=== PATIENT | female | born 1985 | race Caucasian/White ===

== ENCOUNTER 2022-05-13 10:00 | Outpatient (RCR) | payer OTHER, SELFPAY | END 2022-06-29 09:19 | disposition home or self-care (01) | PROVIDERS: PCP Physician Assistant Medical; Visit Provider Physician Assistant Medical | DX: M25.561 Pain in right knee (principal); Z51.89 Encounter for other specified aftercare | CPT/HCPCS: 97110; 97140; 97162 ==

== ENCOUNTER 2023-12-05 07:33 | Outpatient (CLI) | payer OTHER, SELFPAY ==
--- OUTSIDE RECORDS SUMMARY | 2023-12-20 10:24 | XMS_ITS | Patient Health Record ---
Author Organization [facility] [place] Address [address] [place] [address] Care Team Providers Care Safe Technician Name Role Phone AlpaPaige Primary Care Provider Екатерина Bishop Unavailable [phone] Justyna Schuster Unavailable [phone] Stacy Coe Unavailable [phone] Lorenza Sullivan Unavailable [phone] Susan Paniagua Unavailable [phone] Katerina Doan Unavailable [phone] Alexandra Roca Unavailable [phone] Lulu Forrest Unavailable Patricio Govea Unavailable [phone] Allergies Allergen (clinical drug ingredient) Drug/Non Drug Allergy documented on EMR Reaction Allergy Type Onset Date Status amoxicillin / clavulanate Augmentin hives Drug Allergy Active cefaclor Cefaclor Unknown Drug Allergy Active EPINEPHrine dizziness Drug Allergy Activ e Neoprene Neoprene Unknown Allergy Active Results Component Value Reference Range Notes STREPTOCOCCUS, GROUP B CULTU RE W/ SENSITIVITY (PCN ALLERGY) Reviewed date:05/31/2023 09:04:34 AM Interpretation: Performing Lab:JOE, [facility] [facility] HospitalShahzadFikdIC[address] Carlo Huffman Notes/Report: CULTURE, GROUP B STREP WITH SUSCEPTIBILITY SEE NOTE CULTURE, GROUP B STREP WITH SUSCEPTIBILITY Micro Number: [id number] Test Status: Final Specimen Source: Rectal Specimen Quality: Adequate Result: No group B Streptococcus isolated Note per CDC guidelines optimal recovery is achieved by swabbing both the lower vagina and rectum (through the anal sphincter). CBC (INCLUDES DIFF/PLT) Reviewed date:06/28/2023 10:07:55 AM Interpretation: Performing Lab:JOE [employer] [address], Shahzad IngramZzjnFJ[address] Carlo Huffman Notes/Report: WHITE BLOOD CELL COUNT 8.4 3.8-10.8 Thousand/ uL RED BLOOD CELL COUNT 4.85 3.80-5.10 Million/uL HEMOGLOBIN 12.1 11.7-15.5 g/dL HEMATOCRIT 37.8 35.0-45.0 % MCV 77.9 80.0-100.0 fL MCH 24.9 27.0-33.0 pg MCHC 32.0 32.0-36.0 g/dL RDW 14.5 11.0-15.0 % PLATELET COUNT 350 140-400 Thousand/uL MPV 11.0 7.5-12.5 fL ABSOLUTE NEUTROPHILS 5107 0439-7523 cells/uL ABSOLUTE LYMPHOCYTES 2402 850-3900 cells/uL ABSOLUTE MONOCYTES 479 200-950 cells/uL ABSOLUTE EOSINOPHILS 361 15-500 cells/uL ABSOLUTE BASOPHILS 50 0-200 cells/uL NEUTROPHILS 60.8 LYMPHOCYTES 28.6 MONOCYTES 5.7 EOSINOPHILS 4.3 BASOPHILS 0.6 Urinalysis, Routine - IH Reviewed date:03/29/2023 08:40:44 AM Interpretation: Performing Lab: Notes/Report: Glucose Neg Bilirubin Neg Ketone Neg Specific [place] 1.005 Blood Neg pH 8.0 Protein Neg Urobilinogen 0.2 Nitrite Neg Leukocytes Neg RPR (DX) W/REFL TITER AND CO NFIRMATORY TESTING Reviewed date:03/29/2023 08:40:44 AM Interpretation: Performing Lab:JOE [employer] [address], Shahzad IngramVdqiUT[address] Carlo Huffman Notes/Report: 0; 0; 0 RPR (DX) W/REFL TITER AND CONFIRMATORY TESTING NON-REACTIVE NON-REACTIVE CBC (INCLUDES DIFF/PLT) Reviewed date:03/29/2023 08:40:44 AM Interpretation: Performing Lab:JOE [employer] [address], MDSaveEgysXA[address] Carlo Huffman Notes/Report: 0; 0; 0 WHITE BLOOD CELL COUNT 7.7 3.8-10.8 Thousand/ uL RED BLOOD CELL COUNT 4.53 3.80-5.10 Million/uL HEMOGLOBIN 11.9 11.7-15.5 g/dL HEMATOCRIT 36.3 35.0-45.0 % MCV 80.1 80.0-100.0 fL MCH 26.3 27.0-33.0 pg MCHC 32.8 32.0-36.0 g/dL RDW 16.0 11.0-15.0 % PLATELET COUNT 290 140-400 Thousand/uL MPV 10.0 7.5-12.5 fL ABSOLUTE NEUTROPHILS 5814 0496-9057 cells/uL ABSOLUTE LYMPHOCYTES 8304 400-2339 cells/uL ABSOLUTE MONOCYTES 416 200-950 cells/uL ABSOLUTE EOSINOPHILS 62 15-500 cells/uL ABSOLUTE BASOPHILS 23 0-200 cells/uL NEUTROPHILS 75.5 LYMPHOCYTES 18.0 MONOCYTES 5.4 EOSINOPHILS 0.8 BASOPHILS 0.3 GLUCOSE, GESTATIONAL SCREEN (50G)-135 CUTOFF Reviewed date:03/29/2023 08:40:44 AM Interpretation: Performing Lab:JOE [employer] [facility] [employer], [facility] HospitalBkioYM[address] Carlo Huffman Notes/Report: 0; 0; 0 GLUCOSE, GESTATIONAL SCREEN (50G)-135 CUTOFF 134 <135 mg/dL BD Affirm Reviewed date:03/18/2023 11:30:17 AM Interpretation: Performing Lab: Notes/Report: Trichomoniasis neg Negative - Bacterial Vaginosis pos Negative - Yeast neg Negative - CULTURE, URINE, ROUTINE Reviewed date:03/06/2023 12:14:12 PM Interpretation: Performing Lab:JOE [employer], [facility] HospitalGmrgLH[address] Carlo Huffman Notes/Report: CULTURE, URINE, ROUTINE SEE NOTE CULTURE, URINE, ROUTINE Micro Number: [id number] Test Status: Final Specimen Source: Urine, clean catch Specimen Quality: Adequate Result: No Growth Urinalysis, Routine - Reviewed date:03/03/2023 03:24:25 PM Interpretation: Performing Lab: Notes/Report: Urine Color Yellow Yellow - Faby Appearance Clear Clear - Glucose Neg Bilirubin Neg Ketone Neg Specific [place] 1.010 Blood Neg pH 7.5 Protein Neg Urobilinogen 0.2 mg/dL Nitrite Neg Leukocytes Neg Reason For Referral Reason [facility]- Has appt. set u p Diagnosis 1 History of stillbirt h (Z87.59) Referral Organization [facility] Referring Provider First Name Susan Referring Provider Last Name Arcelia Referring Provider Speciality Obstetrici an and manager of data Referred Provider Specialty Radiology General Notes Mirza Elisa 12/23 01:14:58 PM > spoke with Justine, she said Susan sent a referral to [facility] but she has not received a call from them yet to schedule appt. I did give pt the number to [facility], she can call them to get scheduled too. I will check with Susan to see when the referral was sent, pt states understanding. TAHIRA,RN, msg sent to Susan, I don't see the referral in her chart, thank you TAHIRARN, Susan Paniagua 01/04/2023 04:42:58 PM > Per refer to [facility] level II for history of stillbirth, Adrien Herrera 01/05/2023 09:46:03 AM > Referral sent to [facility]- TrackingJavier Andrea 01/07/2023 12:06:53 PM >Being seen on 01/20Javier Andrea 01/24/2023 08:51:18 AM >Notes from 01/20 in chart- PT also being seen on 02/11 and 03/25, Adrien Herrera 03/31/2023 07:59:00 AM >notes in chart Referral Priority Routine Referral Appointment Date 03/25/2023 Medications Medication SIG (Take, Route, Frequency, Duration) Notes Start Date End Date Status Escitalopram 20 MG 1 tablet Orally Once a day Active metFORMIN HCl ER 750 MG TAKE 2 TABLETS B Y MOUTH W/ EVENING MEAL ONCE A DAY for 90 Active Clindamycin HCl 300 MG 1 capsules Orally every 8 hrs for 10 days 06/27/2023 Active Lovenox 40 MG/0.4ML 0.4 mL Injection Onc e a day for 30 days 10/06/2022 Unknown Vitamin Act radha Wellbutrin XL 300 MG 1 tablet in the mor danii Orally Once a day Active Immunizations Vaccine Route Administration Date Status Comme nts TDAP VACCINE >7 IM IM Intramuscular 10/27/2021 Administere d TDAP VACCINE >7 IM IM Intramuscular 05/06/2023 Administere d Social History Tobacco Use: Social History Observation Description Date Details (start date - stop date) Never Smoker NA - NA Tobacco Use/Smoking Question Answer Notes Are you a nonsmoker Alcohol Screen (Audit-C) Question Answer Notes Did you have a drink containing alcohol in the p ast year? No Points 0 Interpretation Negative Sexual History Question Answer Notes Had sex in the past 12 months (vaginal, oral, or anal)? Yes with Men only Last menstrual period 04/08/19 Problems Problem Type SNOMED Code ICD Code Onset Dates Problem Status W/U Status Risk Notes Problem 41300387 Other chronic pain (G89.29) Active confirmed Problem SI - Stress incontinence (54724896) Stress incontinence (female) (male) (N39.3) Active confirmed Problem Urge incontinence of urine (30794205) Urge incontinence (N39.41) Active confirmed Problem Prolapse of female genital organs (61735986) Other female genital prolapse (N81.89) Active confirmed Problem Second trimester (06175717) Encounter for supervision of other normal , second trimester (Z34.82) Active confirmed Problem 841130872193 Obesity affecting in second trimester (O99.212) Active confirmed Problem Multigravida of advanced maternal age (739093788) Elderly multigravida in third trimester (O09.523) Active confirmed Problem Irregular periods (69320640) Irregular periods/menstrua l cycles (N92.6) Active confirmed Problem 430604184 PCOS (polycystic ovarian syndrome) (E28.2) Active confirmed Problem 849825823 High-tone pelvic floor dysfunction (N94.89) Active confirmed Problem First trimester (27450933) First trimester (Z33.1) Active confirmed Problem Spotting (7127657) Spotting (N92.0) Active confirmed Problem 44919063 Dyspareunia in female (N94.10) Active confirmed Problem Anemia of (22468381) Anemia affecting in third trimester (O99.013) Active confirmed Problem Maternal obesity complicating , childbirth and the puerperium, antepartum (628612941734) Obesity affecting (O99.210) Active confirmed Problem 664829996 Factor 5 Leiden mutation, heterozygous (D68.51) Active confirmed Problem 839264048 Obesity (BMI 30-39.9) (E66.9) Active confirmed Problem 759489419484 Obesity affecting in first trimester (O99.211) Active confirmed Problem 466796585 BMI 40.0-44.9, adult (Z68.41) Active confirmed Problem 363820485680 Obesity affecting in third trimester (O99.213) Active confirmed Problem 740217868 Morbid obesity (E66.01) Active confirmed Problem 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 [address] [place], [place] [address] [facility] [address] [place] [phone] 01/04/2023 Susan Paniagua [facility] [address] [place] [address] 03/03/[address] [facility] [address] [place], [place] [address] [address] [place] [phone] 03/07/[address] [facility] [address] [employer] [address] [place] [phone] 03/22/2023 Paige Yuen [facility] [address] [place] [address] 03/23/2023 Susan Paniagua [facility] [address] [place] [address] 04/26/2023 Susan Paniagua [facility] [address] [place] [address] 05/06/2023 Susan Paniagua [address] [place] [phone] 05/11/[address] [facility] [address] [place] [phone] 06/02/[address] [facility] [address] [place] [address] 06/27/[address] [facility] [address] [place] [phone] 12/29/2022 Susan Paniagua [address] [address] 03/09/2023 Justyna Schuster [address] [address] 05/10/2023 Susan Paniagua [address] [address] 05/14/2023 Susan Paniagua [facility] [address] [place] [address] 06/27/2023 Lulu Chin Postop check Z09 [address] [address] 01/11/2023 Stacy Coe Supervision of high risk in second trimester O09.92 ; History of IUFD Z87.59 ; Obesity affecting in second trimester O99.212 and Factor 5 Leiden mutation, heterozygous D68.[address] [address] 02/25/2023 Susan Paniagua Supervision of high risk in second trimester O09.92 ; History of IUFD Z87.59 ; History of delivery Z98.891 and Recurrent loss in patient in second trimester, antepartum O26.[address] [address] 03/03/2023 Justyna Schuster Pelvic cramping R10. 2 and Supervision of high risk , unspecified, second trimester O09.92 [address] [place] [address] 03/23/2023 Katerina Doan Supervision of high risk , unspecified, second trimester O09.92 and IUGR, O36.[address] [address] 04/08/2023 Susan Paniagua Supervision of other high risk pregnancies, third trimester O09.893 ; History of IUFD Z87.59 and History of delivery, currently O34.[address] [address] 04/22/2023 Susan Paniagua Supervision of other high risk pregnancies, third trimester O09.893 ; History of IUFD Z87.59 ; Factor V deficiency D68.2 and Multigravida of advanced maternal age in third trimester O09.[address] [address] 05/06/2023 Susan Paniagua Supervision of other high risk pregnancies, third trimester O09.893 ; History of IUFD Z87.59 ; Multigravida of advanced maternal age in third trimester O09.523 and Need for vaccination Z23 [address] [address] 05/24/2023 Susan Paniagua Supervision of other high risk pregnancies, third trimester O09.893 and History of IUFD Z87.[address] [address] 05/25/2023 Justyna Schuster Supervision of high risk , unspecified, third trimester O09.[address] [address] 05/26/2023 Justyna Schuster Supervision of high risk , unspecified, third trimester O09.[address] [address] 06/10/2023 Stacy Coe Postop check Z09 [address] [address] 03/03/2023 Justyna Schuster Pelvic pain R10.2 [facility] [address] [place] [address] 06/27/2023 Lulu Chin Encounter for well woman exam Z01.419 and Encounter for follow-up Z09 [address] [address] 05/24/2023 Susan Paniagua screening for streptococcus B Z36.[address] [address] 03/23/2023 Susan Paniagua Encounter for supervision of normal in multigravida in third trimester Z34.[address] [address] 05/25/2023 Susan Paniagua [address] [address] 05/26/2023 Justyna Schuster [address] [address] 07/08/2023 Susan Paniagua Encounter for routin e follow-up Z39.2 and Adherent scar L90.[address] [address] 01/11/2023 Susan Paniagua Encounter for supervision of other normal , unspecified trimester Z34.80 and 17 weeks gestation of Z3A.[address] [place] [address] 05/27/2023 Stacy Coe [address] [place] [address] 05/27/2023 Stacy Coe Maternal care for lo w transverse scar from previous delivery O34.211 ; 37 weeks gestation of Z3A.37 and Single live Z37.[address] [address] 01/04/2023 Екатерина Beer Lumbosacral dysfunction M99.03 ; SI (sacroiliac) joint dysfunction M53.3 ; Segmental and somatic dysfunction of thoracic region M99.02 and Cervical (neck) region somatic dysfunction M99.[address] [address] 03/11/2023 Екатерина Beer Lumbosacral dysfunction M99.03 ; SI (sacroiliac) joint dysfunction M53.3 ; Segmental and somatic dysfunction of thoracic region M99.02 and Cervical (neck) region somatic dysfunction M99.[address] [address] 02/25/2023 Екатерина Beer Lumbosacral dysfunction M99.03 ; SI (sacroiliac) joint dysfunction M53.3 ; Segmental and somatic dysfunction of thoracic region M99.02 and Cervical (neck) region somatic dysfunction M99.[address] [address] 05/17/2023 Екатерина Beer Lumbosacral dysfunction M99.03 ; SI (sacroiliac) joint dysfunction M53.3 ; Segmental and somatic dysfunction of thoracic region M99.02 and Cervical (neck) region somatic dysfunction M99.[address] [address] 05/24/2023 Екатерина Beer Lumbosacral dysfunction M99.03 ; SI (sacroiliac) joint dysfunction M53.3 ; Segmental and somatic dysfunction of thoracic region M99.02 and Cervical (neck) region somatic dysfunction M99.[address] [address] 04/21/2023 Екатерина Beer Lumbosacral dysfunction M99.03 ; SI (sacroiliac) joint dysfunction M53.3 ; Segmental and somatic dysfunction of thoracic region M99.02 and Cervical (neck) region somatic dysfunction M99.[address] [address] 02/18/2023 Екатерина Beer Lumbosacral dysfunction M99.03 ; SI (sacroiliac) joint dysfunction M53.3 ; Segmental and somatic dysfunction of thoracic region M99.02 and Cervical (neck) region somatic dysfunction M99.01 [address] [place] [address] 05/10/2023 Екатерина Beer Lumbosacral dysfunction M99.03 ; SI (sacroiliac) joint dysfunction M53.3 ; Segmental and somatic dysfunction of thoracic region M99.02 and Cervical (neck) region somatic dysfunction M99.[address] [address] 07/08/2023 Екатерина Beer Lumbosacral dysfunction M99.03 ; SI (sacroiliac) joint dysfunction M53.3 ; Segmental and somatic dysfunction of thoracic region M99.02 and Cervical (neck) region somatic dysfunction M99.[address] [address] 06/28/2023 Екатерина Beer Lumbosacral dysfunction M99.03 ; SI (sacroiliac) joint dysfunction M53.3 ; Segmental and somatic dysfunction of thoracic region M99.02 and Cervical (neck) region somatic dysfunction M99.[address] [address] 06/14/2023 Екатерина Beer Lumbosacral dysfunction M99.03 ; SI (sacroiliac) joint dysfunction M53.3 ; Segmental and somatic dysfunction of thoracic region M99.02 and Cervical (neck) region somatic dysfunction M99.[address] [address] 01/17/2023 Lorenza Sullivan High-tone pelvic floor dysfunction N94.89 ; Dyspareunia in female N94.10 ; Incomplete emptying of bladder R33.9 ; Other chronic pain G89.29 ; Low back pain, unspecified M54.50 and Pelvic girdle weakness R29.[address] [address] 02/03/2023 Lorenza Sullivan High-tone pelvic floor dysfunction N94.89 ; Dyspareunia in female N94.10 ; Incomplete emptying of bladder R33.9 ; Other chronic pain G89.29 ; Low back pain, unspecified M54.50 and Pelvic girdle weakness R29.[address] [address] 02/17/2023 Lorenzanhung Sullivan High-tone pelvic floor dysfunction N94.89 ; Dyspareunia in female N94.10 ; Incomplete emptying of bladder R33.9 ; Other chronic pain G89.29 ; Low back pain, unspecified M54.50 and Pelvic girdle weakness R29.[address] [address] 07/11/2023 Lorenza Sullivan High-tone pelvic floor dysfunction N94.89 ; Dyspareunia in female N94.10 ; Incomplete emptying of bladder R33.9 ; Other chronic pain G89.29 ; Low back pain, unspecified M54.50 and Pelvic girdle weakness R29.[address] [address] 07/26/2023 Lorenzanhung Sullivan High-tone pelvic floor dysfunction N94.89 ; Dyspareunia in female N94.10 ; Incomplete emptying of bladder R33.9 ; Other chronic pain G89.29 ; Low back pain, unspecified M54.50 and Pelvic girdle weakness R29.[address] [address] 08/23/2023 Lorenza Sullivan High-tone pelvic floor dysfunction N94.89 ; Dyspareunia in female N94.10 ; Incomplete emptying of bladder R33.9 ; Other chronic pain G89.29 ; Low back pain, unspecified M54.50 and Pelvic girdle weakness R29.[address] [address] 09/06/2023 Lorenzanhung Sullivan High-tone pelvic floor dysfunction N94.89 ; Dyspareunia in female N94.10 ; Incomplete emptying of bladder R33.9 ; Other chronic pain G89.29 ; Low back pain, unspecified M54.50 and Pelvic girdle weakness R29.[address] [address] 09/20/2023 Lorenza Uribeon High-tone pelvic floor dysfunction N94.89 ; Dyspareunia in female N94.10 ; Incomplete emptying of bladder R33.9 ; Other chronic pain G89.29 ; Low back pain, unspecified M54.50 and Pelvic girdle weakness R29.[address] [address] 10/03/2023 Lorenzanhung Uribeon High-tone pelvic floor dysfunction N94.89 ; Dyspareunia in female N94.10 ; Incomplete emptying of bladder R33.9 ; Other chronic pain G89.29 ; Low back pain, unspecified M54.50 and Pelvic girdle weakness R29.[address] [address] 10/17/2023 Lorenza Sullivan High-tone pelvic floor dysfunction N94.89 ; Dyspareunia in female N94.10 ; Incomplete emptying of bladder R33.9 ; Other chronic pain G89.29 ; Low back pain, unspecified M54.50 and Pelvic girdle weakness R29.[address] [address] 05/16/2023 Lorenza Sullivan High-tone pelvic floor dysfunction N94.89 ; Dyspareunia in female N94.10 ; Incomplete emptying of bladder R33.9 ; Other chronic pain G89.29 ; Low back pain, unspecified M54.50 and Pelvic girdle weakness R29.[address] [address] 04/14/2023 Lorenza Sullivan High-tone pelvic floor dysfunction N94.89 ; Dyspareunia in female N94.10 ; Incomplete emptying of bladder R33.9 ; Other chronic pain G89.29 ; Low back pain, unspecified M54.50 and Pelvic girdle weakness R29.[address] [address] 04/21/2023 Lorenzanhung Uribeon High-tone pelvic floor dysfunction N94.89 ; Dyspareunia in female N94.10 ; Incomplete emptying of bladder R33.9 ; Other chronic pain G89.29 ; Low back pain, unspecified M54.50 and Pelvic girdle weakness R29.898 [facility] [address] [place] [address] [address] [place] [address] 04/08/2023 Susan Paniagua Assessments Encounter Date Diagnosis (ICD Code) Assessment Notes Treatment Notes Treatment Clinical Notes 03/03/2023 Pelvic cramping (ICD-10 - R10.2) 03/11/2023 Lumbosacral dysfunction (ICD-10 - M99.03) 03/23/2023 Encounter for supervision of normal in multigravida in third trimester (ICD-10 - Z34.83) 03/23/2023 Supervision of high risk , unspecified, second trimester (ICD-10 - O09.92) 03/23/2023 IUGR, (ICD-10 - O36.5990) 04/08/2023 Supervision of other high risk pregnancies, third trimester (ICD-10 - O09.893) 04/14/2023 High-tone pelvic floor dysfunction (ICD-10 - N94.89) 04/08/2023 History of IUFD (ICD-10 - Z87.59) 04/21/2023 Lumbosacral dysfunction (ICD-10 - M99.03) 04/21/2023 High-tone pelvic floor dysfunction (ICD-10 - N94.89) 04/22/2023 Supervision of other high risk pregnancies, third trimester (ICD-10 - O09.893) 04/22/2023 History of IUFD (ICD-10 - Z87.59) 05/06/2023 Supervision of other high risk pregnancies, third trimester (ICD-10 - O09.893) 05/06/2023 History of IUFD (ICD-10 - Z87.59) 05/10/2023 Lumbosacral dysfunction (ICD-10 - M99.03) 05/16/2023 High-tone pelvic floor dysfunction (ICD-10 - N94.89) 05/17/2023 Lumbosacral dysfunction (ICD-10 - M99.03) 05/24/2023 Supervision of other high risk pregnancies, third trimester (ICD-10 - O09.893) 05/24/2023 History of IUFD (ICD-10 - Z87.59) 05/24/2023 Lumbosacral dysfunction (ICD-10 - M99.03) 05/24/2023 screening for streptococcus B (ICD-10 - Z36.85) 05/25/2023 Supervision of high risk , unspecified, third trimester (ICD-10 - O09.93) 05/26/2023 Supervision of high risk , unspecified, third trimester (ICD-10 - O09.93) 05/27/2023 37 weeks gestation of (ICD-10 - Z3A.37) 05/27/2023 Maternal care for low transverse scar from previous delivery (ICD-10 - O34.211) 06/10/2023 Postop check (ICD-10 - Z09) 06/14/2023 Lumbosacral dysfunction (ICD-10 - M99.03) 06/27/2023 Postop check (ICD-10 - Z09) 06/27/2023 Encounter for well woman exam (ICD-10 - Z01.419) 06/28/2023 Lumbosacral dysfunction (ICD-10 - M99.03) 07/08/2023 Encounter for routine follow-up (ICD-10 - Z39.2) 07/08/2023 Adherent scar (ICD-10 - L90.5) 07/11/2023 High-tone pelvic floor dysfunction (ICD-10 - N94.89) 07/08/2023 Lumbosacral dysfunction (ICD-10 - M99.03) 07/26/2023 High-tone pelvic floor dysfunction (ICD-10 - N94.89) 08/23/2023 High-tone pelvic floor dysfunction (ICD-10 - N94.89) 09/06/2023 High-tone pelvic floor dysfunction (ICD-10 - N94.89) 09/20/2023 High-tone pelvic floor dysfunction (ICD-10 - N94.89) 10/03/2023 High-tone pelvic floor dysfunction (ICD-10 - N94.89) 10/17/2023 High-tone pelvic floor dysfunction (ICD-10 - N94.89) 01/04/2023 Lumbosacral dysfunction (ICD-10 - M99.03) 01/11/2023 Encounter for supervision of other normal , unspecified trimester (ICD-10 - Z34.80) 01/11/2023 17 weeks gestation of (ICD-10 - Z3A.17) 01/11/2023 Supervision of high risk in second trimester (ICD-10 - O09.92) 01/17/2023 High-tone pelvic floor dysfunction (ICD-10 - N94.89) 02/03/2023 High-tone pelvic floor dysfunction (ICD-10 - N94.89) 02/17/2023 High-tone pelvic floor dysfunction (ICD-10 - N94.89) 02/18/2023 Lumbosacral dysfunction (ICD-10 - M99.03) 02/25/2023 Supervision of high risk in second trimester (ICD-10 - O09.92) 02/25/2023 History of IUFD (ICD-10 - Z87.59) 02/25/2023 Lumbosacral dysfunction (ICD-10 - M99.03) 03/03/2023 Pelvic pain (ICD-10 - R10.2) 03/03/2023 Supervision of high risk , unspecified, second trimester (ICD-10 - O09.92) 02/25/2023 History of delivery (ICD-10 - Z98.891) 02/17/2023 Dyspareunia in female (ICD-10 - N94.10) 02/18/2023 SI (sacroiliac) joint dysfunction (ICD-10 - M53.3) 02/03/2023 Dyspareunia in female (ICD-10 - N94.10) 01/17/2023 Dyspareunia in female (ICD-10 - N94.10) 01/11/2023 History of IUFD (ICD-10 - Z87.59) 01/04/2023 SI (sacroiliac) joint dysfunction (ICD-10 - M53.3) 10/17/2023 Dyspareunia in female (ICD-10 - N94.10) 10/03/2023 Dyspareunia in female (ICD-10 - N94.10) 09/20/2023 Dyspareunia in female (ICD-10 - N94.10) 09/06/2023 Dyspareunia in female (ICD-10 - N94.10) 08/23/2023 Dyspareunia in female (ICD-10 - N94.10) 07/26/2023 Dyspareunia in female (ICD-10 - N94.10) 07/08/2023 SI (sacroiliac) joint dysfunction (ICD-10 - M53.3) 07/11/2023 Dyspareunia in female (ICD-10 - N94.10) 06/27/2023 Encounter for follow-up (ICD-10 - Z09) 05/17/2023 SI (sacroiliac) joint dysfunction (ICD-10 - M53.3) 05/24/2023 SI (sacroiliac) joint dysfunction (ICD-10 - M53.3) 06/14/2023 SI (sacroiliac) joint dysfunction (ICD-10 - M53.3) 06/28/2023 SI (sacroiliac) joint dysfunction (ICD-10 - M53.3) 05/27/2023 Single live (ICD-10 - Z37.0) 05/10/2023 SI (sacroiliac) joint dysfunction (ICD-10 - M53.3) 05/16/2023 Dyspareunia in female (ICD-10 - N94.10) 05/06/2023 Multigravida of advanced maternal age in third trimester (ICD-10 - O09.523) 04/22/2023 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) 04/21/2023 Dyspareunia in female (ICD-10 - N94.10) 04/21/2023 SI (sacroiliac) joint dysfunction (ICD-10 - M53.3) 04/14/2023 Dyspareunia in female (ICD-10 - N94.10) 04/08/2023 History of delivery, currently (ICD-10 - O34.219) 02/25/2023 SI (sacroiliac) joint dysfunction (ICD-10 - M53.3) 03/11/2023 SI (sacroiliac) joint dysfunction (ICD-10 - M53.3) 03/11/2023 Segmental and somatic dysfunction of thoracic region (ICD-10 - M99.02) 04/14/2023 Incomplete emptying of bladder (ICD-10 - R33.9) 04/21/2023 Segmental and somatic dysfunction of thoracic region (ICD-10 - M99.02) 04/21/2023 Incomplete emptying of bladder (ICD-10 - R33.9) 04/22/2023 Multigravida of advanced maternal age in third trimester (ICD-10 - O09.523) 05/06/2023 Need for vaccination (ICD-10 - Z23) 05/16/2023 Incomplete emptying of bladder (ICD-10 - R33.9) 05/10/2023 Segmental and somatic dysfunction of thoracic region (ICD-10 - M99.02) 05/17/2023 Segmental and somatic dysfunction of thoracic region (ICD-10 - M99.02) 05/24/2023 Segmental and somatic dysfunction of thoracic region (ICD-10 - M99.02) 06/14/2023 Segmental and somatic dysfunction of thoracic region (ICD-10 - M99.02) 06/28/2023 Segmental and somatic dysfunction of thoracic region (ICD-10 - M99.02) 07/11/2023 Incomplete emptying of bladder (ICD-10 - R33.9) 07/08/2023 Segmental and somatic dysfunction of thoracic region (ICD-10 - M99.02) 07/26/2023 Incomplete emptying of bladder (ICD-10 - R33.9) 08/23/2023 Incomplete emptying of bladder (ICD-10 - R33.9) 09/06/2023 Incomplete emptying of bladder (ICD-10 - R33.9) 09/20/2023 Incomplete emptying of bladder (ICD-10 - R33.9) 10/03/2023 Incomplete emptying of bladder (ICD-10 - R33.9) 10/17/2023 Incomplete emptying of bladder (ICD-10 - R33.9) 01/04/2023 Segmental and somatic dysfunction of thoracic region (ICD-10 - M99.02) 01/11/2023 Obesity affecting in second trimester (ICD-10 - O99.212) 01/17/2023 Incomplete emptying of bladder (ICD-10 - R33.9) 02/03/2023 Incomplete emptying of bladder (ICD-10 - R33.9) 02/18/2023 Segmental and somatic dysfunction of thoracic region (ICD-10 - M99.02) 02/17/2023 Incomplete emptying of bladder (ICD-10 - R33.9) 02/25/2023 Recurrent loss in patient in second trimester, antepartum (ICD-10 - O26.22) 02/25/2023 Segmental and somatic dysfunction of thoracic region (ICD-10 - M99.02) 02/25/2023 Cervical (neck) region somatic dysfunction (ICD-10 - M99.01) 02/18/2023 Cervical (neck) region somatic dysfunction (ICD-10 - M99.01) 02/03/2023 Other chronic pain (ICD-10 - G89.29) 02/17/2023 Other chronic pain (ICD-10 - G89.29) 01/17/2023 Other chronic pain (ICD-10 - G89.29) 01/11/2023 Factor 5 Leiden mutation, heterozygous (ICD-10 - D68.51) 01/04/2023 Cervical (neck) region somatic dysfunction (ICD-10 - M99.01) 10/03/2023 Other chronic pain (ICD-10 - G89.29) 10/17/2023 Other chronic pain (ICD-10 - G89.29) 09/06/2023 Other chronic pain (ICD-10 - G89.29) 09/20/2023 Other chronic pain (ICD-10 - G89.29) 07/26/2023 Other chronic pain (ICD-10 - G89.29) 08/23/2023 Other chronic pain (ICD-10 - G89.29) 07/11/2023 Other chronic pain (ICD-10 - G89.29) 07/08/2023 Cervical (neck) region somatic dysfunction (ICD-10 - M99.01) 06/28/2023 Cervical (neck) region somatic dysfunction (ICD-10 - M99.01) 06/14/2023 Cervical (neck) region somatic dysfunction (ICD-10 - M99.01) 05/24/2023 Cervical (neck) region somatic dysfunction (ICD-10 - M99.01) 05/17/2023 Cervical (neck) region somatic dysfunction (ICD-10 - M99.01) 05/10/2023 Cervical (neck) region somatic dysfunction (ICD-10 - M99.01) 05/16/2023 Other chronic pain (ICD-10 - G89.29) 04/21/2023 Other chronic pain (ICD-10 - G89.29) 04/21/2023 Cervical (neck) region somatic dysfunction (ICD-10 - M99.01) 04/14/2023 Other chronic pain (ICD-10 - G89.29) 03/11/2023 Cervical (neck) region somatic dysfunction (ICD-10 - M99.01) 04/14/2023 Low back pain, unspecified (ICD-10 - M54.50) 04/21/2023 Low back pain, unspecified (ICD-10 - M54.50) 05/16/2023 Low back pain, unspecified (ICD-10 - M54.50) 07/11/2023 Low back pain, unspecified (ICD-10 - M54.50) 08/23/2023 Low back pain, unspecified (ICD-10 - M54.50) 07/26/2023 Low back pain, unspecified (ICD-10 - M54.50) 09/20/2023 Low back pain, unspecified (ICD-10 - M54.50) 09/06/2023 Low back pain, unspecified (ICD-10 - M54.50) 10/17/2023 Low back pain, unspecified (ICD-10 - M54.50) 10/03/2023 Low back pain, unspecified (ICD-10 - M54.50) 02/03/2023 Low back pain, unspecified (ICD-10 - M54.50) 01/17/2023 Low back pain, unspecified (ICD-10 - M54.50) 02/17/2023 Low back pain, unspecified (ICD-10 - M54.50) 02/17/2023 Pelvic girdle weakness (ICD-10 - R29.898) 02/03/2023 Pelvic girdle weakness (ICD-10 - R29.898) 01/17/2023 Pelvic girdle weakness (ICD-10 - R29.898) 10/17/2023 Pelvic girdle weakness (ICD-10 - R29.898) 10/03/2023 Pelvic girdle weakness (ICD-10 - R29.898) 08/23/2023 Pelvic girdle weakness (ICD-10 - R29.898) 09/20/2023 Pelvic girdle weakness (ICD-10 - R29.898) 09/06/2023 Pelvic girdle weakness (ICD-10 - R29.898) 07/26/2023 Pelvic girdle weakness (ICD-10 - R29.898) 07/11/2023 Pelvic girdle weakness (ICD-10 - R29.898) 05/16/2023 Pelvic girdle weakness (ICD-10 - R29.898) 04/21/2023 Pelvic girdle weakness (ICD-10 - R29.898) 04/14/2023 Pelvic girdle weakness (ICD-10 - R29.898) 01/04/2023 Other Based upon presenting symptoms, objective findings, and clinical assessment, today's treatment consisted of the following: CHIROPRACTIC ADJUSTMENTS (CMTs) 3-4 REGIONS: 3-4 spinal body region [04867] adjustments were performed today on areas of subluxation utilizing diversified and Chester techniques and Jevon Basic. Therapeutic exercise/modality: none Post-treatment assessment: Today's treatment was performed without incident, and she indicated that she felt slight relief following the treatment. Post treatment motion palpation of the involved dysfunctional joints revealed an immediate increase in joint motion as well as a decrease in point tenderness. Home/self-care: Patient was instructed in home care recommendations that included: figure 4 stretch, rolling with foam roller or tennis ball on glute. Instructed pt to start back up with her PT exercises to help engage the gluteal muscles. Care recommendations:Weekl y visit 4-6 weeks, transition to bi weekly for 4 visits and re-evaluate. This can be modified or changed at any time if needed d/t improving or worsening symptoms, non compliance, new injury, etc. 01/17/2023 Other Treatment Plan: Frequency: weekly Duration: 8-12 weeks Planned Interventions: therapeutic exercise, therapeutic activities, self care/home management, manual therapy, neuromuscular reeducation, urostym/e-stim Plan for next visit: Progress home exercise as indicated with focus on PF and pelvic girdle stabilization exercises, manual therapy as indicated 02/03/2023 Other Treatment Plan: Frequency: weekly Duration: 8-12 weeks Planned Interventions: therapeutic exercise, therapeutic activities, self care/home management, manual therapy, neuromuscular reeducation, urostym/e-stim Plan for next visit: Progress home exercise as indicated with focus on PF and pelvic girdle stabilization exercises, manual therapy as indicated 02/17/2023 Other Treatment Plan: Frequency: weekly Duration: 8-12 weeks Planned Interventions: therapeutic exercise, therapeutic activities, self care/home management, manual therapy, neuromuscular reeducation, urostym/e-stim Plan for next visit: Progress home exercise as indicated with focus on PF and pelvic girdle stabilization exercises, manual therapy as indicated 02/18/2023 Other Based upon presenting symptoms, objective findings, and clinical assessment, today's treatment consisted of the following: CHIROPRACTIC ADJUSTMENTS (CMTs) 3-4 REGIONS: 3-4 spinal body region [[id number]] adjustments were performed today on areas of subluxation utilizing diversified and [place] techniques and Jevon Basic. Therapeutic exercise/modality: none Post-treatment assessment: Today's treatment was performed without incident, and she indicated that she felt slight relief following the treatment. Post treatment motion palpation of the involved dysfunctional joints revealed an immediate increase in joint motion as well as a decrease in point tenderness. Home/self-care: Patient was instructed in home care recommendations that included: figure 4 stretch, rolling with foam roller or tennis ball on glute. Instructed pt to start back up with her PT exercises to help engage the gluteal muscles. Care recommendations:Weekl y visit 4-6 weeks, transition to bi weekly for 4 visits and re-evaluate. This can be modified or changed at any time if needed d/t improving or worsening symptoms, non compliance, new injury, etc. 02/25/2023 Other Based upon presenting symptoms, objective findings, and clinical assessment, today's treatment consisted of the following: CHIROPRACTIC ADJUSTMENTS (CMTs) 3-4 REGIONS: 3-4 spinal body region [[id number]] adjustments were performed today on areas of subluxation utilizing diversified and [place] techniques and Jevon Basic. Therapeutic exercise/modality: none Post-treatment assessment: Today's treatment was performed without incident, and she indicated that she felt slight relief following the treatment. Post treatment motion palpation of the involved dysfunctional joints revealed an immediate increase in joint motion as well as a decrease in point tenderness. Home/self-care: Patient was instructed in home care recommendations that included: figure 4 stretch, rolling with foam roller or tennis ball on glute. Instructed pt to start back up with her PT exercises to help engage the gluteal muscles. Care recommendations: visits every 2 weeks until delivery. 03/11/2023 Other Based upon presenting symptoms, objective findings, and clinical assessment, today's treatment consisted of the following: CHIROPRACTIC ADJUSTMENTS (CMTs) 3-4 REGIONS: 3-4 spinal body region [[id number]] adjustments were performed today on areas of subluxation utilizing diversified and [place] techniques and Jevon Basic. Therapeutic exercise/modality: none Post-treatment assessment: Today's treatment was performed without incident, and she indicated that she felt slight relief following the treatment. Post treatment motion palpation of the involved dysfunctional joints revealed an immediate increase in joint motion as well as a decrease in point tenderness. Home/self-care: Patient was instructed in home care recommendations that included: none new. offered supportive listening. 04/14/2023 Other Treatment Plan: Frequency: weekly Duration: 8-12 weeks Planned Interventions: therapeutic exercise, therapeutic activities, self care/home management, manual therapy, neuromuscular reeducation, urostym/e-stim Plan for next visit: Progress home exercise as indicated with focus on PF and pelvic girdle stabilization exercises, manual therapy as indicated 04/21/2023 Other Based upon presenting symptoms, objective findings, and clinical assessment, today's treatment consisted of the following: CHIROPRACTIC ADJUSTMENTS (CMTs) 3-4 REGIONS: 3-4 spinal body region [[id number]] adjustments were performed today on areas of subluxation utilizing diversified and Chester techniques and Jevon Basic. Therapeutic exercise/modality: none Post-treatment assessment: Today's treatment was performed without incident, and she indicated that she felt slight relief following the treatment. Post treatment motion palpation of the involved dysfunctional joints revealed an immediate increase in joint motion as well as a decrease in point tenderness. Home/self-care: Patient was instructed in home care recommendations that included: none new. offered supportive listening. 04/21/2023 Other Treatment Plan: Frequency: weekly Duration: 8-12 weeks Planned Interventions: therapeutic exercise, therapeutic activities, self care/home management, manual therapy, neuromuscular reeducation, urostym/e-stim Plan for next visit: Progress home exercise as indicated with focus on PF and pelvic girdle stabilization exercises, manual therapy as indicated 05/10/2023 Other Based upon presenting symptoms, objective findings, and clinical assessment, today's treatment consisted of the following: CHIROPRACTIC ADJUSTMENTS (CMTs) 3-4 REGIONS: 3-4 spinal body region [[id number]] adjustments were performed today on areas of subluxation utilizing diversified and Chester techniques and Jevon Basic. Therapeutic exercise/modality: none Post-treatment assessment: Today's treatment was performed without incident, and she indicated that she felt slight relief following the treatment. Post treatment motion palpation of the involved dysfunctional joints revealed an immediate increase in joint motion as well as a decrease in point tenderness. Home/self-care: Patient was instructed in home care recommendations that included: none new. offered supportive listening. 05/16/2023 Other Treatment Plan: Frequency: weekly Duration: 8-12 weeks Planned Interventions: therapeutic exercise, therapeutic activities, self care/home management, manual therapy, neuromuscular reeducation, urostym/e-stim Plan for next visit: Progress home exercise as indicated with focus on PF and pelvic girdle stabilization exercises, manual therapy as indicated 05/17/2023 Other Based upon presenting symptoms, objective findings, and clinical assessment, today's treatment consisted of the following: CHIROPRACTIC ADJUSTMENTS (CMTs) 3-4 REGIONS: 3-4 spinal body region [[id number]] adjustments were performed today on areas of subluxation utilizing diversified and Chester techniques and Jevon Basic. Therapeutic exercise/modality: none Post-treatment assessment: Today's treatment was performed without incident, and she indicated that she felt slight relief following the treatment. Post treatment motion palpation of the involved dysfunctional joints revealed an immediate increase in joint motion as well as a decrease in point tenderness. Home/self-care: Patient was instructed in home care recommendations that included: none new. offered supportive listening. 05/24/2023 Other Based upon presenting symptoms, objective findings, and clinical assessment, today's treatment consisted of the following: CHIROPRACTIC ADJUSTMENTS (CMTs) 3-4 REGIONS: 3-4 spinal body region [[id number]] adjustments were performed today on areas of subluxation utilizing diversified and [place] techniques and Jevon Basic. Therapeutic exercise/modality: none Post-treatment assessment: Today's treatment was performed without incident, and she indicated that she felt slight relief following the treatment. Post treatment motion palpation of the involved dysfunctional joints revealed an immediate increase in joint motion as well as a decrease in point tenderness. Home/self-care: Patient was instructed in home care recommendations that included: none new. offered supportive listening. 06/10/2023 Other Continue same actviity level and restrictions RTC for 6wk exam 06/14/2023 Other Based upon presenting symptoms, objective findings, and clinical assessment, today's treatment consisted of the following: CHIROPRACTIC ADJUSTMENTS (CMTs) 3-4 REGIONS: 3-4 spinal body region [[id number]] adjustments were performed today on areas of subluxation utilizing diversified and [place] techniques and Jevon Basic. Therapeutic exercise/modality: none Post-treatment assessment: Today's treatment was performed without incident, and she indicated that she felt slight relief following the treatment. Post treatment motion palpation of the involved dysfunctional joints revealed an immediate increase in joint motion as well as a decrease in point tenderness. Home/self-care: Patient was instructed in home care recommendations that included: none new. offered supportive listening. 06/27/2023 Other 1. Will start clindamycin- she has some cellulitis. She has multiple medication allergies that cause anaphylxis, so this is why clinda was chosen 2. CBC today- she has had some dizziness, and is out of ferrous sulfate supplements. 06/28/2023 Other Based upon presenting symptoms, objective findings, and clinical assessment, today's treatment consisted of the following: CHIROPRACTIC ADJUSTMENTS (CMTs) 3-4 REGIONS: 3-4 spinal body region [[id number]] adjustments were performed today on areas of subluxation utilizing diversified and [place] techniques and Jevon Basic. Therapeutic exercise/modality: none Post-treatment assessment: Today's treatment was performed without incident, and she indicated that she felt slight relief following the treatment. Post treatment motion palpation of the involved dysfunctional joints revealed an immediate increase in joint motion as well as a decrease in point tenderness. Home/self-care: Patient was instructed in home care recommendations that included: none new. offered supportive listening. 07/08/2023 Other Reviewed recommendations for pelvic floor exercises following and . Instructed on proper technique for Kegals, continue to follow PT plan of care. Encouraged use of high quality lubricant when returning to intercourse. Discussed spacing and all options including R/B/A for control methods. Given Caya sample today with instructions for use. Will call if she desires rx for this. Message sent to derm/spa for options related to scar tissue mobilization options. RTC in 1 year for annual exam 07/08/2023 Other Based upon presenting symptoms, objective findings, and clinical assessment, today's treatment consisted of the following: CHIROPRACTIC ADJUSTMENTS (CMTs) 3-4 REGIONS: 3-4 spinal body region [[id number]] adjustments were performed today on areas of subluxation utilizing diversified and [place] techniques and Jevon Basic. Therapeutic exercise/modality: none Post-treatment assessment: Today's treatment was performed without incident, and she indicated that she felt slight relief following the treatment. Post treatment motion palpation of the involved dysfunctional joints revealed an immediate increase in joint motion as well as a decrease in point tenderness. Home/self-care: Patient was instructed in home care recommendations that included: none new. offered supportive listening. 07/11/2023 Other Treatment Plan: Frequency: start with bi-weekly and decrease frequency as able Duration: 6-9 months as needed Planned Interventions: therapeutic exercise, therapeutic activities, self care/home management, manual therapy, neuromuscular reeducation, urostym/e-stim Plan for next visit: Progress home exercise as indicated with focus on PF and pelvic girdle stabilization exercises, manual therapy as indicated for scar tissue. Assess PF 07/26/2023 Other Treatment Plan: Frequency: start with bi-weekly and decrease frequency as able Duration: 6-9 months as needed Planned Interventions: therapeutic exercise, therapeutic activities, self care/home management, manual therapy, neuromuscular reeducation, urostym/e-stim Plan for next visit: Progress home exercise as indicated with focus on PF and pelvic girdle stabilization exercises, manual therapy as indicated for scar tissue. 08/23/2023 Other Treatment Plan: Frequency: start with bi-weekly and decrease frequency as able Duration: 6-9 months as needed Planned Interventions: therapeutic exercise, therapeutic activities, self care/home management, manual therapy, neuromuscular reeducation, urostym/e-stim Plan for next visit: Progress home exercise as indicated with focus on PF and pelvic girdle stabilization exercises, manual therapy as indicated for scar tissue. 09/06/2023 Other Treatment Plan: Frequency: start with bi-weekly and decrease frequency as able Duration: 6-9 months as needed Planned Interventions: therapeutic exercise, therapeutic activities, self care/home management, manual therapy, neuromuscular reeducation, urostym/e-stim Plan for next visit: Progress home exercise as indicated with focus on PF and pelvic girdle stabilization exercises, manual therapy as indicated for scar tissue. 09/20/2023 Other Treatment Plan: Frequency: start with bi-weekly and decrease frequency as able Duration: 6-9 months as needed Planned Interventions: therapeutic exercise, therapeutic activities, self care/home management, manual therapy, neuromuscular reeducation, urostym/e-stim Plan for next visit: Progress home exercise as indicated with focus on PF and pelvic girdle stabilization exercises, manual therapy as indicated for scar tissue. 10/03/2023 Other Treatment Plan: Frequency: start with bi-weekly and decrease frequency as able Duration: 6-9 months as needed Planned Interventions: therapeutic exercise, therapeutic activities, self care/home management, manual therapy, neuromuscular reeducation, urostym/e-stim Plan for next visit: Progress home exercise as indicated with focus on PF and pelvic girdle stabilization exercises, manual therapy as indicated for scar tissue. 10/17/2023 Other Treatment Plan: Frequency: start with bi-weekly and decrease frequency as able Duration: 6-9 months as needed Planned Interventions: therapeutic exercise, therapeutic activities, self care/home management, manual therapy, neuromuscular reeducation, urostym/e-stim Plan for next visit: Progress home exercise as indicated with focus on PF and pelvic girdle stabilization exercises, manual therapy as indicated for scar tissue. 04/26/2023 Other Surgery: Repeat CS Diagnosis: prior CS, breech, growth restriction Surgeon: Brooklyn Arcos; yes will need an assist Anesthesia: spinal Location: [facility] Date: TueMay 25 (at 37+0wks as recommended by [facility]) Usual preop instructions Plan Of Treatment Pending Test Test Name Order Date STREPTOCOCCUS, GROUP B CULTURE 3 Panorama Test 11/23/2022 Insurance Providers Payer Name Payer Address Payer Phone Subscriber Number Group Number Insured Name Patient Relationship to Insured Coverage Start Date Coverage End Date [employer] (Ins Bill) [address] [place] [address] [id number] VANITA SANABRIA Self - patient is the insured Medical (General) History Medical History History ICD Code PCOS Gallbladder disease Migraines Depression\Anxiety Abnormal pap 04/27/2019 MTHFR gene mutation Surgical History Surgery Date(Month/Year) Gallbladder 2016 LEEP 2017 12/31/2021 05/27/23 Hospitalization History Reason Date(Month/Year) childbirth
--- OUTSIDE RECORDS SUMMARY | 2023-12-20 10:24 | XMS_ITS | Clinical Summary ---
Author Organization [facility] Address [address] [place] [address] Care Team Providers Care French Folder Name Role Phone [place], [place] [facility] Primary Care Provider Dorothy Mauricio MD Unavailable [phone] Allergies Active Allergy Reactions Criticality Noted Date Comments Amoxicillin Hives High 07/29/2022 Amoxicillin-Pot Clavulanate Anaphylaxis High 021 Cefaclor Unknown,Hives High 12/30/2020 Epinephrine Dizziness 01/12/2023 Penicillin G Hives High 07/29/2022 Medications Medication Sig Dispensed Refills Start Date End Date Status 25/iron fum/folic/dha (-1 ORAL) [ 25/IRON FUM/FOLIC/DHA (-1 ORAL)] Take by mouth. 12/30/2020 Active escitalopram oxalate (LEXAPRO) 20 MG tablet [ESCITALOPRAM OXALATE (LEXAPRO) 20 MG TABLET] Take 20 mg by mouth daily. 01/05/2021 Active buPROPion (WELLBUTRIN XL) 150 MG 24 hr tablet Take 150 mg by mouth daily 10/04/2021 Active metFORMIN (GLUCOPHAGE-XR) 750 MG 24 hr tablet TAKE 2 TABLETS BY MOUTH W/ EVENING MEAL ONCE A DAY 90 11/05/2022 Active oxyCODONE (ROXICODONE) 5 MG tabletIndications: delivery delivered Take 1 tablet (5 mg) by mouth every 4 hours as needed for breakthrough pain 12 tablet 05/29/2023 Active ibuprofen (ADVIL/MOTRIN) 800 MG tabletIndications: delivery delivered Take 1 tablet (800 mg) by mouth every 6 hours 30 tablet 05/29/2023 Active senna-docusate (SENOKOT-S/PERICOL NOLAN) 8.6-50 MG tabletIndications: delivery delivered Take 2 tablets by mouth 2 times daily as needed for constipation 30 tablet 05/29/2023 Active ferrous sulfate (FE TABS) 325 (65 Fe) MG EC tabletIndications: Anemia due to blood loss, acute Take 1 tablet (325 mg) by mouth daily 60 tablet 05/29/2023 Active Active Problems Problem Noted Date Diagnosed Date delivery delivered 05/27/2023 Encounter for triage in patient 023 Polycystic ovary syndrome 01/12/20232022 Prolapse of female genital organs 01/12/2023 01/12/2023 Tear of lateral meniscus of right knee 3 01/12/2023 Urge incontinence of urine 01/12/202301/12 Other chronic pain 01/12/2023 01/12/2023 Multigravida of advanced maternal age 0601/12/2023 01/12/2023 Anxiety and depression 01/12/2023 IUFD at 20 weeks or more of gestation 12/29/2021 Overview: IUFD at 39 weeks First trimester 01/05/2021 Factor 5 Leiden mutation, heterozygous (H24) Heterozygous MTHFR mutation [id number] 11/06/2020 Resolved Problems Problem Noted Date Diagnosed Date Resolved Date Encounter for induction of labor 12/28/2021 01/12/2023 Encounter for triage in patient 12/22/2021 01/12/2023 Immunizations Name Administration Dates Next Due COVID-19 MONOVALENT 12+ (Pfizer) 11/29/2020,10/23 Influenza Vaccine 18-64 (Flublok) 03/26/2023 MMR 05/28/2023 Family History Medical History Relation Comments Diabetes Type 2 Father Factor V Leiden deficiency Father heter ozygous Hyperlipidemia Father Hypertension Father Breast Cancer Maternal Aunt Rheumatoid Arthritis Maternal Grandfather No Known Problems Mother No Known Problems Sister 1 No Known Problems Sister 2 Relation Status Comments Father Alive Maternal Aunt Maternal Grandfather Mother Alive Sister 1 Alive Sister 2 Alive Social History Tobacco Use Types Packs/Day Years Used Date Smoking Tobacco: Never Smokeless Tobacco: Never Tobacco Cessation:Counseling Given: Not Answered Alcohol Use Standard Drinks/Week Comments Not Currently 0 (1 standard drink = 0.6 oz pur e alcohol) Adolescent Education Answer Date Record ed Getting School Help Needed Not on file 04/15 Sex and Gender Information Value Date Recorded Sex Assigned at Female 04/27/2021 11:59 AM CDT Gender Identity Female 04/27/2021 11:59 AM CDT Sexual Orientation Straight 04/27/2021 11 :59 AM CDT Last Filed Vital Signs Vital Sign Reading Time Taken Comments Blood Pressure 113/74 05/29/2023 9:00 AM CARTON LETTERING MACHINE OPERATOR Pulse 78 05/29/2023 9:00 AM CARTON LETTERING MACHINE OPERATOR Temperature 36.9 ??C (98.5 ??F) 05/29/2023 9:00 AM CS T Respiratory Rate 18 05/29/2023 9:00 AM CARTON LETTERING MACHINE OPERATOR Oxygen Saturation 97% 05/29/2023 9:00 AM CARTON LETTERING MACHINE OPERATOR Inhaled Oxygen Concentration - - Weight 104.6 kg (230 lb 9.6 oz) 05/29/2023 3:00 PM CARTON LETTERING MACHINE OPERATOR Height 165.1 cm (5' 5) 05/27/2023 7:50 AM CDT Body Mass Index 38.37 05/27/2023 7:50 AM CDT Plan of Treatment Health Maintenance Due Date Last Done Comments ADVANCE CARE PLANNING 1984 ANNUAL REVIEW OF HM ORDERS 1984 HEPATITIS B IMMUNIZATION (1 of 3 - 19+ 3-dose series) 2003 YEARLY PREVENTIVE VISIT 05/17/2020 05/17/2019 COVID-19 Vaccine ( season) 2023 07/26/2021, 11/29/2020, 11/08/2020 PHQ-2 (once per calendar year) 2023 HPV TEST 05/17/2024 05/17/2019, 05/17/2019 PAP 05/17/2024 05/17/2019 GLUCOSE 05/27/2026 05/27/2023, 07/02/2021, 01/09/2021 DTAP/TDAP/TD IMMUNIZATION (3 - Td or Tdap) 05/06/2033 05/06/2023, 10/27/2021 HEPATITIS C SCREENING Completed 11/02/2022 HIV SCREENING Completed 11/02/2022, 06/02/2021 INFLUENZA VACCINE Completed 03/26/2023, , 05/02/2021, Additional history exists HPV IMMUNIZATION Aged Out No longer e ligible based on patient's age to complete this topic IPV IMMUNIZATION Aged Out No longer e ligible based on patient's age to complete this topic MENINGITIS IMMUNIZATION Aged Out No l onger eligible based on patient's age to complete this topic Pneumococcal Vaccine: Pediatrics (0 to 5 Years) and At-Risk Patients (6 to 64 Years) Aged Out No longer eligible based on patient's age to complete this topic RSV MONOCLONAL ANTIBODY Aged Out No l onger eligible based on patient's age to complete this topic Procedures Procedure Name Priority Date/Time Associated Diagnosis Comments GLUCOSE BY METER Routine 05/27/2023 9:48 AM CDT HIV 1&2 ANTIBODY (EXTERNAL RESULT) Routine 11/02/2022 1:59 AM CDT HEPATITIS C ANTIBODY (EXTERNAL RESULT) Routine 11/02/2022 1:59 AM CDT PAP SMEAR - HIM PATIENT REPORTED Routine 05/17/2019 HPV HIGH RISK TYPES DNA CERVICAL Routine 05/17/2019 from Last 3 Months or Most Recently Relevant to Health Maintenance Results * (ABNORMAL) Glucose by meter (05/27/2023 9:48 AM CDT) GLUCOSE BY METER POCT 100(H) 70 - 99 mg/dL 05/27/2023 9:55 AM CDT [facility] POCT RESULTS Blood, Capillary BLOOD SPECIMEN / Unknown 05/27/2023 9:48 AM CDT 05/27/2023 9:55 AM CDT [facility] POCT RESULTS [address] [place] [address] * Hepatitis C Antibody (External Result) (11/02/2022 1:59 AM CDT) Hepatitis C Antibody (External) Nonreactive Nonreactive EXTERNAL LAB 11/02/2022 1:59 AM CDT Susan Paniagua CNM LAB - HIM EXTERNAL R ESULT Performing Organization Address City/[facility]/ZIP Co de Phone Number EXTERNAL LAB External Lab * HIV-1 Antibody (External Result) (11/02/2022 1:59 AM CDT) HIV 1&2 Antibody (External) Nonreactive Nonreactive EXTERNAL LAB 11/02/2022 1:59 AM CDT Susan BARKERM LAB - HIM EXTERNAL R ESULT Performing Organization Address [facility] Co de Phone Number EXTERNAL LAB External Lab * PAP Smear - HIM Patient Reported (05/17/2019) PAP Smear - HIM Patient Reported See Scanned Report EXTERNAL LAB Comment:NILM 05/17/2019 Narrative 05/17/2019 [facility] Consultation External Historical Provider LABORATORY Performing Organization Address [facility] Co de Phone Number EXTERNAL LAB EXTERNAL LAB * (ABNORMAL) HPV High Risk Types DNA Cervical (05/17/2019) HPV_EXT - HISTORICAL See Scanned Report(A) EXTERNAL LAB Comment:HPV + Specimen of unknown material (specimen) 05/17/2019 Narrative 05/17/2019 [facility] Consultation External Historical Provider LAB - BLOOD ORDERABL ES EXTERNAL LAB EXTERNAL LAB from Last 3 Months or Most Recently Relevant to Health Maintenance Advance Directives For more information, please contact: [phone] * Full Code (Latest Code Status on File) Date Activated Date Inactivated Comments 05/27/2023 2:57 PM 05/29/2023 3:50 PM All basic an d advanced life-sustaining interventions are performed as appropriate Question Answer Comments Code status determined by: Discussion with patie nt/ legal decision maker * Full Code Date Activated Date Inactivated Comments 12/28/2021 7:50 PM 01/01/2022 2:31 PM All basic and advanced life-sustaining interventions are performed as appropriate Question Answer Comments Code status determined by: Unable to dis cuss and no AD/POLST on file; continue PREVIOUSLY ORDERED code status Care Teams French Folder Relationship Specialty Start Date End Date [address] [facility] [address] [place], [place] [id number] PCP - General 12/23/21 Dorothy Mauricio MD [address] [address] [place] [address] Assigned OBGYN Provider 01/22/23
--- OUTSIDE RECORDS SUMMARY | 2023-12-20 10:24 | XMS_ITS | Encounter Summary ---
Author Organization [facility] Address [address] [place] [address] Care Team Providers Care Digester Operator Name Role Phone System, Provider Not In Primary Care Provider Un available Janeth Meyer MD Unavailable [facility], [facility] 637 Primary Care Provider Tyree Padilla DO Unavailable [phone] Joanne Maddox GC Unavailable [phone] Roxie Yu MD Unavailable Vince Nagy MD Unavailable [phone] Dorothy Mauricio MD Unavailable [phone] [facility], [facility] Primary Care Provider Vince Nagy MD Unavailable [phone] Dorothy Mauricio MD Unavailable [phone] Encounter Details Date Type Department Care Team (Late st Contact Info) Description 11/10/2020 Records - [facility] CONVERSION Scan, Non-Provider Social History Tobacco Use Types Packs/Day Years Used Date Smoking Tobacco: Never Assessed Sex and Gender Information Value Date Recorded Sex Assigned at Female 04/27/2021 11:59 AM CDT Gender Identity Female 04/27/2021 11:59 AM CDT Sexual Orientation Straight 04/27/2021 11 :59 AM CDT documented as of this encounter Plan of Treatment Not on file documented as of this encounter Visit Diagnoses Not on filedocumented in this encounter Care Teams Digester Operator Relationship Specialty Start Date End Date System, Provider Not In PCP - General Clinic 01/09/21 01/09/21 [facility] Fr Dennis 637 [facility] [address] [place] [address] PCP - General 02/08/21 12/22/21 [facility] [address] [facility] [address] [place] [address] PCP - General 12/23/21 Janeth Meyer MD 1 [place] [address] Assigned Cancer Care Provider 02/06/21 02/19/22 Tyree Padilla DO [address] [place] [address] Assigned Rheumatology Provider 06/14/21 10/08/22 Joanne Maddox GC [address] [place] [address] Assigned OBGYN Provider 06/14/2106/25 Roxie Yu MD [facility] [address]45 [facility] AILYN [facility] [address] [place], [place] [address] Assigned OBGYN Provider 07/19/21 Vince Nagy MD [address] [facility] [address] [address] Assigned OBGYN Provider 08/16/21 Dorothy Mauricio MD [address] [facility] [address] [place] [address] Assigned OBGYN Provider 09/13/21 Vince Nagy MD [address] [place] [address] Assigned OBGYN Provider 02/20/22 Dorothy Mauricio MD [address] [place] [address] Assigned OBGYN Provider 01/22/23 documented as of this encounter
--- OUTSIDE RECORDS SUMMARY | 2023-12-20 10:24 | XMS_ITS | Encounter Summary ---
Author Organization [facility] Address [address] [place] [address]. [place] [address] Care Team Providers Care Model Maker Plastic Name Role Phone Tyree Padilla DO Unavailable [phone] [facility] Primary Care Provider Vince Nagy MD Unavailable [phone] Dorothy Mauricio MD Unavailable [phone] Encounter Details Date Type Department Care Team (Late st Contact Info) Description 08/19/2022 [facility] Medical Advice Initial Department Clint Germain Social History Tobacco Use Types Packs/Day Years Used Date Smoking Tobacco: Never Smokeless Tobacco: Never Alcohol Use Standard Drinks/Week Comments Not Currently 0 (1 standard drink = 0.6 oz pur e alcohol) Sex and Gender Information Value Date Recorded Sex Assigned at Female 04/27/2021 11:59 AM CDT Gender Identity Female 04/27/2021 11:59 AM CDT Sexual Orientation Straight 04/27/2021 11 :59 AM CDT documented as of this encounter Plan of Treatment Not on file documented as of this encounter Visit Diagnoses Not on filedocumented in this encounter Care Teams Model Maker Plastic Relationship Specialty Start Date End Date [facility] [address] [place], [place] [phone] PCP - General 12/23/21 Tyree Padilla DO [address] [place] [address] Assigned Rheumatology Provider 06/14/21 10/08/22 Vince Nagy MD [address] [place], [place] [address] Assigned OBGYN Provider 02/20/22 Dorothy Mauricio MD [address] [place], [place] [id number] Assigned OBGYN Provider 01/22/23 documented as of this encounter
--- OUTSIDE RECORDS SUMMARY | 2023-12-20 10:24 | XMS_ITS | Encounter Summary ---
Author Organization [place] Address [address] [place] [address] Care Team Providers Care Hospitality Associate Name Role Phone System, Provider Not In Primary Care Provider Un available Janeth Meyer MD Unavailable [facility], [facility] 637 Primary Care Provider Tyree Padilla DO Unavailable [phone] Joanne Maddox GC Unavailable [phone] Roxie Yu MD Unavailable Vince Nagy MD Unavailable [phone] Dorothy Mauricio MD Unavailable [phone] [facility], [facility] Primary Care Provider Vince Nagy MD Unavailable [phone] Dorothy Mauricio MD Unavailable [phone] Encounter Details Date Type Department Care Team (Late st Contact Info) Description 11/11/2020 Records - [facility] HE CONVERSION Scan, Non-Provider [...] on filedocumented in this encounter Care Teams Hospitality Associate Relationship Specialty Start Date End Date System, Provider Not In PCP - General Clinic 01/09/21 01/09/21 [facility] Fr Dennis [address] [facility] [address] [place] [address] PCP - General 02/08/21 12/22/21 [facility] [address] [facility] [address] [place] [address] PCP - General 12/23/21 Janeth Meyer MD 1 [place] [address] Assigned Cancer Care Provider 02/06/21 02/19/22 Tyree Padilla DO [address] [place] [address] Assigned Rheumatology Provider 06/14/21 10/08/22 Joanne Maddox GC [address] [place] [address] Assigned OBGYN Provider 06/14/2106/25 Roxie Yu MD [facility] [address] [facility] AILYN [facility] [address] [place], [place] [address] Assigned OBGYN Provider 07/19/21 Vince Nagy MD 606 [facility] [address] [address] [address] Assigned OBGYN Provider 08/16/21 Dorothy Mauricio MD [address] [facility] [address] [place] [address] Assigned OBGYN Provider 09/13/21 Vince Nagy MD [address] [place] [address] Assigned OBGYN Provider 02/20/22 Dorothy Mauricio MD [address] [place] [address] Assigned OBGYN Provider 01/22/23 documented as of this encounter
--- OUTSIDE RECORDS SUMMARY | 2023-12-20 10:24 | XMS_ITS | Referral Summary ---
Author Organization [place] Address [address] [place] [address] Care Team Providers Care Automobile Upholsterer Apprentice Name Role Phone [place], [place] Women' Primary Care Provider Dorothy Mauricio MD Unavailable [phone] Allergies Active Allergy Reactions Criticality Noted [...] Influenza Vaccine 18-64 (Flublok) 03/26/2023 MMR 05/28/2023 Social History Tobacco Use Types Packs/Day Years [...] Comments Blood Pressure 113/74 05/29/2023 9:00 AM CLIENT EXPERIENCE CONSULTANT Pulse 78 05/29/2023 9:00 AM CLIENT EXPERIENCE CONSULTANT Temperature 36.9 ??C (98.5 ??F) 05/29/2023 9:00 AM CS T Respiratory Rate 18 05/29/2023 9:00 AM CLIENT EXPERIENCE CONSULTANT Oxygen Saturation 97% 05/29/2023 9:00 AM CLIENT EXPERIENCE CONSULTANT Inhaled Oxygen Concentration - - Weight 104.6 kg (230 lb 9.6 oz) 05/29/2023 3:00 PM CLIENT EXPERIENCE CONSULTANT Height 165.1 cm (5' 5) 05/27/2023 7:50 AM CDT Body Mass Index 38.37 05/27/2023 7:50 AM CDT Plan of Treatment Not on file Procedures Procedure Name Priority Date/Time Associated Diagnosis [...] - 99 mg/dL 05/27/2023 9:[address] [facility] POCT RESULTS Blood, Capillary BLOOD SPECIMEN / Unknown 05/27/2023 9:48 AM CDT 05/27/2023 9:55 AM CDT Stacy Coe MD LAB - BE[facility] POCT [facility] POCT RESULTS [address] [place] [address] * Hepatitis C Antibody (External Result) (11/02/2022 1:59 AM CDT) Hepatitis C Antibody (External) Nonreactive Nonreactive EXTERNAL LAB 11/02/2022 1:59 AM CDT Susan Paniagua CNM LAB - HIM EXTERNAL R ESULT EXTERNAL LAB External Lab * HIV-1 Antibody (External Result) (11/02/2022 1:59 AM CDT) HIV 1&2 Antibody (External) Nonreactive Nonreactive EXTERNAL LAB 11/02/2022 1:59 AM CDT Susan BARKERM LAB - HIM EXTERNAL R ESULT EXTERNAL LAB External Lab * PAP Smear - HIM Patient Reported (05/17/2019) PAP Smear - HIM Patient Reported See Scanned Report EXTERNAL LAB Comment:NILM 05/17/2019 Narrative 05/17/2019 [place] [facility] Consultation External Historical Provider LABORATORY EXTERNAL LAB EXTERNAL LAB * (ABNORMAL) HPV [...] Advance Directives For more information, please contact: [phone] * Full Code (Latest Code Status on [...] continue PREVIOUSLY ORDERED code status Care Teams Automobile Upholsterer Apprentice Relationship Specialty Start Date End Date [address] [facility] [address] [place], [place] [phone] PCP - General 12/23/21 Dorothy Mauricio MD [address] [place], [place] [address] Assigned OBGYN Provider 01/22/23
--- OUTSIDE RECORDS SUMMARY | 2023-12-20 10:24 | XMS_ITS | Encounter Summary ---
Author Organization [facility] Address [address] [place] [address] Care Team Providers Care Electrical Systems Design Engineer Name Role Phone System, Provider Not In Primary Care Provider Un available Janeht Meyer MD Unavailable [facility], [facility] 637 Primary Care Provider Tyree Padilla DO Unavailable [phone] Joanne Maddox GC Unavailable [phone] Roxie Yu MD Unavailable [phone] Vince Nagy MD Unavailable [phone] Dorothy Mauricio MD Unavailable [phone] [facility] Primary Care Provider Vince Nagy MD Unavailable [phone] Dorothy Mauricio MD Unavailable [phone] Reason for Referral * Consultation (Routine) - Closed Specialty Diagnoses / Procedures Referred By Contac t Referred To Contact Rheumatology Diagnoses Positive MANUELITO (antinuclear antibody) Generic External Data Department Referral ID Status Reason Start Date Expiration Date Visits Re quested Visits Authorized [id number] Closed 11/13/2020 11/13/2021 1 1 Question Answer Reason for Referral Other (Use Comments) - Positive MANUELITO Scheduling Instructions: [facility] Rheumatology [facility]ry [facility] will call you to coordinate your care as prescribed by your provider. A parts representative will call you within 1 business day to help schedule your appointment, or you may contact the Quarry Boss Behavioral Scientist at [phone]. Additional Information: Referral and records received in Rheum consult folder on 11/12/2020 9:40 AM, total of 6 pgs. Referred by Idalia Hidalgo CNM from [facility]: [phone]. Comments Please be aware that coverage of these services is subject to the terms and limitations of your health insurance plan. Call member services at your health plan with any benefit or coverage questions. [facility] Rheumatology [facility]arry Boss will call you to coordinate your care as prescribed by your provider. A parts representative will call you within 1 business day to help schedule your appointment, or you may contact the Quarry Boss Behavioral Scientist at [phone]. Encounter Details Date Type Department Care Team (Late st Contact Info) Description 11/13/2020 Transcribe Orders GENERIC EXTERNAL DATA DEPARTMENT Provider, Generic External Data Positive MANUELITO (antinuclear antibody) (Primary Dx) Social History Tobacco Use Types Packs/Day Years Used Date Smoking Tobacco: Never Assessed Sex and Gender Information Value Date Recorded Sex Assigned at Female 04/27/2021 11:59 AM CDT Gender Identity Female 04/27/2021 11:59 AM CDT Sexual Orientation Straight 04/27/2021 11 :59 AM CDT documented as of this encounter Plan of Treatment Scheduled Referrals Name Type Priority Associated Diagnoses Orde r Schedule Rheumatology Referral Referral Routine Positive MANUELITO (antinuclear antibody) Expected: 11/13/2020, Expires: 11/13/2021 documented as of this encounter Visit Diagnoses Diagnosis Positive MANUELITO (antinuclear antibody)- Primary Other and unspecified nonspecific immunological findings documented in this encounter Care Teams Electrical Systems Design Engineer Relationship Specialty Start Date End Date System, Provider Not In PCP - General Clinic 01/09/21 01/09/21 [facility] Babatunde Collins [address] [facility] [address] [place], [place] [address] PCP - General 02/08/21 12/22/21 [facility] [address] [place] [address] PCP - General 12/23/21 Janeth Meyer MD [address] [place] [address] Assigned Cancer Care Provider 02/06/21 02/19/22 Tyree Padilla DO [address] [place] [address] Assigned Rheumatology Provider 06/14/21 10/08/22 Joanne Maddox GC [address] [place], [place] [address] Assigned OBGYN Provider 06/14/2106/25 Roxie Yu MD [facility] [address] [facility] [facility] [facility] [address] [place], [place] [address] Assigned OBGYN Provider 07/19/21 Vince Nagy MD [address] [place], [place] [address] Assigned OBGYN Provider 08/16/21 Dorothy Mauricio MD [address] [place], [place] [address] Assigned OBGYN Provider 09/13/21 Vince Nagy MD [address] [place], [place] [address] Assigned OBGYN Provider 02/20/22 Dorothy Mauricio MD [address] [address] Assigned OBGYN Provider 01/22/23 documented as of this encounter
== END 2023-12-05 07:34 | disposition home or self-care (01) ==
LOC: NFLDREF 12-20 10:21
PROVIDERS: PCP Physician Assistant Medical; Referring Provider Physician Assistant Medical; Visit Provider Physician Assistant Medical
DX: Z00.00 Encounter for general adult medical examination without abnormal findings (principal); E28.2 Polycystic ovarian syndrome; E66.9 Obesity, unspecified; Z13.6 Encounter for screening for cardiovascular disorders
CPT/HCPCS: 80048; 80061